=== PATIENT | male | born 1955 | race African-American/Black ===

== ENCOUNTER 2019-08-22 16:00 | Emergency (ER) | payer SELFPAY ==
[~2019-08-22] VITALS: Ht 182.9 cm; Wt 99.8 kg
[2019-08-22 16:07] VITALS: BP 125/78
--- NOTE | 2019-08-22 16:10 | NUR ---
PT PLACED IN ROOM 9 BY EMS
[2019-08-22] MEDS ORDERED: NACL 0.9% 1,000 ML IV ONE ×2 (17:05→17:45)
[2019-08-22 17:38] LABS: BASOPHILS % (AUTO) 0.7 % (0.0-2.0); EOSINOPHILS % (AUTO) 0.7 % (0.0-4.0); HEMATOCRIT 48.6 % (36-52); LYMPHOCYTES # (AUTO) 3.1 K/uL (2.0-11.5); MEAN CORPUSCULAR HEMOGLOBIN 32 pg (27-31); MEAN CORPUSCULAR HGB CONC 33 g/dL (33-37); MEAN CORPUSCULAR VOLUME 95.9 fL (80-94); MONOCYTES # (AUTO) 0.3 K/uL (0.8-1.0); MONOCYTES % (AUTO) 4.6 % (1.7-9.3); NEUTROPHILS # (AUTO) 2.7 K/uL (1.8-7.7); PLATELET COUNT (AUTO) 289 K/uL (140-450); RED BLOOD CELL COUNT(AUTO) 5.07 MIL/uL (4.20-6.10); WHITE BLOOD COUNT (AUTO) 6.2 K/uL (4.8-10.8)
--- NOTE | 2019-08-22 18:07 | NUR ---
Stable Has become more responsive States that he was drinking Awaiting lab results
[2019-08-22 18:16] LABS: ALBUMIN 3.7 g/dL (3.4-5.0); ASPARTATE AMINOTRANSFERASE 59 U/L (15-37); CARBON DIOXIDE 19.9 mmol/L (21-32); CHLORIDE 105 mmol/L (98-107); CREATININE 1.3 mg/dL (0.6-1.3); GFR ARICAN-AMERICAN 71 mL/min (>90); GLUCOSE 95 mg/dL (74-106); POTASSIUM 3.9 mmol/L (3.5-5.1); SODIUM SERUM 140 mmol/L (136-145); TOTAL BILIRUBIN 0.5 mg/dL (0.0-1.0); UREA NITROGEN, BLOOD 9 mg/dL (7-18)
[2019-08-22 18:21] LABS: ACETAMINOPHEN < 0.5 ug/ml (10-30); SALICYLATE < 2.8 mg/dL (2.8-20.0)
[2019-08-22 18:36] LABS: APPEARANCE,URINE CLEAR (CLEAR); BILIRUBIN,URINE NEGATIVE (NEGATIVE); BLOOD, URINE NEGATIVE (NEGATIVE); LEUKOCYTE ESTERASE ,URINE NEGATIVE (NEGATIVE); NITRITE, URINE NEGATIVE (NEGATIVE); PH,URINE 5.5 (5.0-9.0); UGLUCOSE NEGATIVE (NEGATIVE)
[2019-08-22 18:37] LABS: COLOR,URINE STRAW (YELLOW)
--- NOTE | 2019-08-22 18:39 | NUR ---
PT MOVED TO BED 07
--- NOTE | 2019-08-22 19:53 | NUR ---
CALLED LAB REGARDING DRUG SCREEN. STATED SPECIMEN WAS SENT TO [facility]. ELISABETH ( DOG OR ANIMAL SITTER) WILL CALL AND FOLLOW UP.
--- NOTE | 2019-08-22 20:19 | NUR ---
PT MOVED TO CHAIR C
--- NOTE | 2019-08-22 21:20 | NUR ---
IV REMOVED. CATHETER INTACT.
--- NOTE | 2019-08-22 21:30 | NUR ---
Patient discharged with v/s stable. Written and verbal after care instructions given and explained. Patient verbalized understanding. Ambulatory with steady gait. All questions addressed prior to discharge. Advised to follow up with PMD. ALERT TO NAME BIRTHDAY PLACE AND EVENT. AMBULATORY WITHOUT DIFFICULTY.
[2019-08-22 21:46] VITALS: BP 131/86
[2019-08-22 21:52] LABS: BARBITURATE, URINE NEGATIVE ng/ml (NEG <=200); BENZODIAZEPINE, URINE NEGATIVE ng/mL (NEG <=200); CANNABINOID, URINE NEGATIVE ng/mL (NEG <=50); COCAINE, URINE NEGATIVE ng/mL (NEG <=300); OPIATE, URINE NEGATIVE ng/mL (NEG <=2000); PHENCYCLIDINE SCREEN,URINE NEGATIVE ng/mL (NEG <=25)
== END 2019-08-22 21:30 | disposition home or self-care (01) ==
LOC: MED 16:00
DX: F10.129 Alcohol abuse with intoxication, unspecified (principal); V79.88XA Bus occupant (driver) (passenger) injured in other specified transport accidents, initial encounter; I51.89 Other ill-defined heart diseases; Y93.89 Activity, other specified; Y92.89 Other specified places as the place of occurrence of the external cause; Y99.8 Other external cause status
CPT/HCPCS: 36415; 70450; 71045; 80053; 80305; 81003; 82550; 82553; 83605; 84484; 85025; 87040; 99285; G0480; G0482; J7030; 93005